=== PATIENT | male | born 1990 | race Native Hawaiian/Other Pacific Islander ===

== ENCOUNTER 2016-09-12 11:09 | Emergency (ER) | payer OTHER ==
[~2016-09-12] VITALS: Ht 170.2 cm; Wt 88.4 kg
[2016-09-12 11:11] VITALS: BP 135/78
[2016-09-12] MEDS ORDERED: KEFL500C17 PO (12:00)
== END 2016-09-12 12:11 | disposition home or self-care (01) ==
LOC: M ED 11:09
DX: L03.116 Cellulitis of left lower limb (principal)